=== PATIENT | male | born 1960 | race Caucasian/White ===

== ENCOUNTER 2023-12-29 12:14 | Outpatient (AMB) | payer BC, SELFPAY ==
--- NOTE | 2023-12-29 12:38 | MHC.OFFWIV ---
Intake Vital Signs 12/29/23 12:39 Height 5 ft 10 in Weight 236 lb BMI 33.9 BP 176/110 H Blood Pressure Location Lt brachial Position Sitting Pulse 79 Pulse Source Pulse Oximeter Temp 98.4 F Temp Source Oral Pulse Oximetry (%) 97 Oxygen Delivery Method Room Air Intake Visit Reasons: [employer]ATION [employer] lft hand swollen cant close Intake Note: pt here c/o left hand pain and swelling. Started last night around 8 pm.? Spider bite Patient Tobacco Use Status: Never used Tobacco Allergies No Known Allergies Allergy (Verified 12/29/23 12:44) Do you need a note to return to daycare/school/sports/work: No HPI [employer]ISTRATION TE[employer]ER lft hand swollen cant close HPI Details Patient is a 63-year-old male comes to the walk-in clinic complaining of swelling and pain to the left hand that started acutely last night around 08:00 o'clock. He questions a spider bite, as there was 1 localized to 3rd webspace that looked red and painful and swollen. This has progressed cover all 4 fingers dorsal area of the hand. No tingling or weakness, fatigue or myalgias or malaise, fever or chills, nausea vomiting or diarrhea, or other systemic symptoms or symptoms apparent of sepsis/infection. [facility] Social History Patient Tobacco Use Status: Never used Tobacco Physical Exam Vital Signs: Last Vital Signs Temp 98.4 F 12/29/23 12:39 Pulse 79 12/29/23 12:39 BP 176/110 H 12/29/23 12:39 Pulse Ox 97 12/29/23 12:39 Oxygen Delivery Method Room Air 12/29/23 12:39 BMI result Body Mass Index 33.9 Const General: cooperative, healthy appearing, comfortable, no acute distress, alert, awake, Physically active and well groomed; No anxious, diaphoretic, ill appearing, intoxicated appearing, poor hygiene or tired appearing Nutritional Appearance: average body habitus Limitations: no limitations Neck Neck: Yes normal visual inspection and No anterior neck swelling Resp Effort & Inspection: normal respiratory effort, able to speak in complete sentences, no audible wheezes, no cough, no grunting, not labored, no nasal flaring, no retractions and symmetric chest movement Cardio Rate: regular rate Skin Other: Erythema and edema to the left dorsal hand, involving 4 fingers. He has decreased range of motion due to swelling and pain. Pulses are strong and regular, and he is neurovascularly intact distally with good cap refill. No abnormal warmth to the area. Psych Appearance: grossly normal Mental Status: mental status grossly normal Speech and movement: Normal speech and movement present Affect: normal affect Attitude: cooperative Thought process: Normal thought process present Insight: Good insight present (Psych) Judgement: Good judgement present (Psych) Assessment & Plan Assessment & Plan (1) Insect bite: Code(s): W57.XXXA - Bitten or stung by nonvenomous insect and other nonvenomous arthropods, initial encounter Qualifiers: Encounter type: initial encounter Laterality: left Site of insect bite: hand Qualified Code(s): S60.562A - Insect bite (nonvenomous) of left hand, initial encounter; W57.XXXA - Bitten or stung by nonvenomous insect and other nonvenomous arthropods, initial encounter Plan: Patient is a 63-year-old male who reports an insect bite to the left middle finger, in the webspace, that has become increasingly swollen and painful. I think he is having a localized inflammation reaction to an apparent insect bite, and I started him on a course of prednisone as well as Vistaril as needed. He is not appear to have septic joint, and knows to monitor symptoms and follow up if they persist or worsen. He knows to go to the emergency department for worrisome symptoms. Medications: New prednisone then take 3 tabs for 3 days, then 2 tabs for 3 days, then 1 tab for 3 days. 40 mg (4 x 10 mg) PO DAILY 30 tabs 0RF 3 days hydroxyzine pamoate (Vistaril) Do not drive or do safety sensitive work while taking 25 mg PO TID PRN 30 caps 0RF itching Coding Level of Care Code Est Pt Level 4 (47167) Diagnoses Insect bite of left hand, initial encounter S60.562A; W57.XXXA Encounter type: initial encounter Laterality: left Site of insect bite: hand
[2023-12-29 12:39] VITALS: BP 176/110; PULSE 79; TEMP 36.9; O2SAT 97; BMI 33.9
== END 2023-12-29 13:50 | disposition home or self-care (01) ==
PROVIDERS: Visit Provider Physician Assistant Medical
DX: S60.562A Insect bite (nonvenomous) of left hand, initial encounter (principal); W57.XXXA Bitten or stung by nonvenomous insect and other nonvenomous arthropods, initial encounter
CPT/HCPCS: 99214